=== PATIENT | female | born 1945 | race Caucasian/White ===

== ENCOUNTER 2017-12-22 17:15 | Emergency (ER) | payer OTHER, BC ==
[~2017-12-22] VITALS: Ht 157.5 cm; Wt 70.3 kg
[2017-12-22] MEDS ORDERED: SYMBICORT 16010.2 GM IH (20:39)
[2017-12-22] MEDS ORDERED: PROMETH-CODEIN 65 ML PO (20:39)
== END 2017-12-22 20:43 | disposition home or self-care (01) ==
LOC: ER 17:15
DX: R05 Cough (principal)